=== PATIENT | female | born 1930 | race Caucasian/White ===

== ENCOUNTER 2017-05-26 13:41 | Emergency (ER) | payer MEDICARE ==
[~2017-05-26] VITALS: Ht 154.9 cm; Wt 78.0 kg
[~2017-05-26 13:41] MED LIST: ALPR-623 PO; ASPI-974 PO; CITA20TA19 PO; DOCU100C41 PO; HYDR12.55 PO; LACT1CAP65 PO; ONDA4TAB11 PO; SOTA80TA PO; VALS160T2 PO
[2017-05-26] MEDS ORDERED: normal saline 1000ML IV soln IVB ONE (14:55)
[2017-05-26] MEDS ORDERED: magnesium citrate 296ml oral solution PO ONE (16:15)
[2017-05-26] MEDS ORDERED: DOCU-28 PO (16:46)
[2017-05-26 18:12] VITALS: BP 160/105
== END 2017-05-26 18:05 | disposition home or self-care (01) ==
LOC: ER 13:41
DX: K59.00 Constipation, unspecified (principal); I25.10 Atherosclerotic heart disease of native coronary artery without angina pectoris; I10 Essential (primary) hypertension; G89.29 Other chronic pain; Z95.0 Presence of cardiac pacemaker; Z98.890 Other specified postprocedural states; Z79.82 Long term (current) use of aspirin; Z79.899 Other long term (current) drug therapy; Z60.2 Problems related to living alone
CPT/HCPCS: 74176; 99284; J7030

== ENCOUNTER 2017-07-29 13:58 | Emergency (ER) | payer MEDICARE ==
[~2017-07-29] VITALS: Ht 165.1 cm; Wt 82.7 kg
[~2017-07-29 13:58] MED LIST changes: +DOCU-28 PO
[2017-07-29 18:10] VITALS: BP 150/89
== END 2017-07-29 18:16 | disposition home or self-care (01) ==
LOC: ER 13:58
DX: K59.00 Constipation, unspecified (principal); I25.10 Atherosclerotic heart disease of native coronary artery without angina pectoris; I10 Essential (primary) hypertension; G89.29 Other chronic pain; Z98.890 Other specified postprocedural states; Z95.0 Presence of cardiac pacemaker; Z85.9 Personal history of malignant neoplasm, unspecified; Z79.82 Long term (current) use of aspirin; Z79.899 Other long term (current) drug therapy
CPT/HCPCS: 74018; 99284

== ENCOUNTER 2019-01-28 09:34 | Emergency (ER) | payer MEDICARE ==
[~2019-01-28] VITALS: Ht 160 cm; Wt 82.0 kg
--- NOTE | 2019-01-28 09:55 | NUR ---
pt fell today on to her knee was able to get back up in to a sitting positon susan hiting head right now susan pain says the bed suports her back good so she is not having pain at this time
--- NOTE | 2019-01-28 10:46 | NUR ---
called pt daughter Cecily [phone] states pt daughter pernell on her way to transport pt home
[2019-01-28 10:52] VITALS: BP 137/96
== END 2019-01-28 11:43 | disposition home or self-care (01) ==
LOC: ER 09:35
DX: S80.01XA Contusion of right knee, initial encounter (principal); M54.5 Low back pain; M48.061 Spinal stenosis, lumbar region without neurogenic claudication; I25.10 Atherosclerotic heart disease of native coronary artery without angina pectoris; I10 Essential (primary) hypertension; M19.90 Unspecified osteoarthritis, unspecified site; G89.29 Other chronic pain; Z98.890 Other specified postprocedural states; Z95.0 Presence of cardiac pacemaker; Z79.899 Other long term (current) drug therapy; Z79.82 Long term (current) use of aspirin; W18.09XA Striking against other object with subsequent fall, initial encounter; Y93.89 Activity, other specified; Y92.89 Other specified places as the place of occurrence of the external cause; Y99.9 Unspecified external cause status
CPT/HCPCS: 72100; 99284